=== PATIENT | male | born 1945 | race Caucasian/White ===

== ENCOUNTER 2017-02-26 17:32 | Observation (INO) | payer MEDICARE ==
[~2017-02-26 17:32] MED LIST: ASPI-973 PO; HYG25 PO; LANS30CA14 PO; LOSA50TA37 PO; NAPR220C11 PO
[2017-02-26 17:51] VITALS: BP 160/91; PULSE 112; RESP 16; O2SAT 96
[2017-02-26] MEDS ORDERED: Ondansetron 2 mg/mL 2 mL Inj IVPUSH PRN (18:05)
[2017-02-26] MEDS ORDERED: HYDROmorphone 0.5 mg/0.5 mL iSecure Syringe IVPUSH PRN (18:05)
[2017-02-26] MEDS ORDERED: HYDR12.5 PO (18:55)
[2017-02-26] MEDS: Lactated Ringer's 1,000 ML IV SCH (18:56)
--- NOTE | 2017-02-26 18:56 | NUR ---
Admit Pt arrived to floor ~1700. Drove himself here and ambulated in independently. Dr. Wise paged upon arrival and orders received. states he will be here in about 1 hour to see pt. No c/o pain or nausea at this time. no significant health hx. pt is an overall healthy man. See admit for details. Care conts
[2017-02-26 19:49] VITALS: BP 144/76; PULSE 58; RESP 18; O2SAT 96
[2017-02-26 20:22] LABS: APPEARANCE,URINE CLEAR (CLEAR,HAZY); COLOR,URINE YELLOW (YELLOW)
[2017-02-26 20:23] LABS: OCCULT BLOOD,URINE TRACE (NEGATIVE); UROBILINOGEN,URINE NORMAL (NORMAL)
[2017-02-26] MEDS: CeFAZolin Inj 2 GM in IV Premix 1 EACH IV SCH (20:58)
[2017-02-27 00:46] VITALS: BP 135/72; PULSE 92; RESP 18; O2SAT 95
--- NOTE | 2017-02-27 03:51 | NUR ---
Update Pt. reported pain, but however denies need for pain medication. Denies nausea. Will continue to monitor.
[2017-02-27] MEDS: CeFAZolin Inj 2 GM in IV Premix 1 EACH IV SCH ×3 (04:01→18:44)
[2017-02-27 04:46] VITALS: BP 121/73; PULSE 87; RESP 18; O2SAT 94
[2017-02-27] MEDS: Lactated Ringer's 1,000 ML IV SCH ×2 (05:24→14:13)
--- NOTE | 2017-02-27 06:12 | HP ---
[address] [address] HISTORY AND PHYSICAL PATIENT: GERALD MACK : 1945 MR#: [id number] ADMIT: 02/26/2017 JOB ID: [id number] DATE OF SERVICE: 02/26/2017 HISTORY OF PRESENT ILLNESS: The patient is a 71-year-old man who lives in [place] and had onset of abdominal pain yesterday. He describes the pain as being in the epigastrium and right upper quadrant. It does not clearly go into his back. It is not associated with nausea, vomiting, hematemesis or melena. He has never had similar symptoms. He presented to urgent care. An abdominal ultrasound was obtained which demonstrated diffuse gallbladder wall thickening. There were no gallstones. A negative sonographic Perez sign. Intrahepatic bile ducts were normal. Extrahepatic bile duct is not well seen. The pancreas not well seen. There was no free intra-abdominal fluid. He was in a significant amount of pain at that time, and then I was contacted and he was admitted. Subsequently, he feels better. He states the pain is less than it was previously. He has no known history of jaundice, acholic stools, dark urine, or pancreatitis. There is no known family history of gallstones or peptic ulcer disease. PAST MEDICAL HISTORY: Illnesses: 1. Hypertension. 2. Question GERD. HOME MEDICATIONS: 1. Losartan 50 mg daily. 2. Chlorthalidone 25 mg daily. 3. Prevacid 30 mg daily. 4. Hydrochlorothiazide 12.5 mg daily. 5. Naproxen p.r.n. ALLERGIES: None. OPERATIONS: No abdominal operations. HABITS: No tobacco. Quit in 1977. Alcohol: Occasional. SOCIAL HISTORY: He is . His of MS after having it for 30 years. He is retired, worked at [employer], lives in [place]. He is accompanied by his daughter Monica. FAMILY HISTORY: Negative for gallstones. REVIEW OF SYSTEMS: Otherwise negative. PHYSICAL EXAMINATION: Pleasant, alert, no distress. Appearing stated age. BMI not yet recorded. Temperature 36.8, brachial blood pressure 160/91, pulse 112, respiratory rate 16, O2 sat room air 96%. HEENT: PERRLA, EOMI. No scleral icterus. Neck: Trachea midline. No appreciable masses. Lymph nodes: No appreciable cervical, scalene, our inguinal adenopathy. Lungs: Clear to auscultation and percussion. Cardiac exam: Regular rhythm. No murmurs or gallops appreciated. Abdomen: Soft, nontender. He has no right upper quadrant tenderness. Extremities: No edema. Skin: Nonjaundiced. No rashes. Neurologic exam: Appropriate affect. No obvious cranial nerve deficits. No lateralizing signs. Gait not tested. LABORATORY TESTS: White blood cell count is 13.1, hematocrit 43, platelet count 261. Bilirubin 1.4. AST 18, ALT 19, lipase 36, glucose 153. Ultrasound: Diffuse gallbladder wall thickening. No gallstones. Negative sonographic Perez sign. Normal bile ducts. IMPRESSION: Epigastric pain, etiology unknown. It is possible that he may have or had a small stone obstructing the cystic duct that has now been relieved. By description and exam, I think he is better than what he was at urgent care, but the etiology of his pain remains obscure. The differential does include still calculous and acalculous cholecystitis, peptic ulcer disease, gastroesophageal reflux disease, and even appendicitis; although, I think that is not likely. PLAN: He will be started on clear liquids. Will continue IVs to the night. Will repeat laboratories tomorrow. Tomorrow, he may need a HIDA scan. He may need a CT scan. He may need an upper endoscopy or he may need nothing. I discussed this with the patient and his daughter and they understand and state they agree with this plan. Cc: SOBIA Fernandes
[2017-02-27 06:52] LABS: BASOPHILS % (AUTO) 0.1 % (0-3); EOSINOPHILS % (AUTO) 0.2 % (0-5); MONOCYTES % (AUTO) 9.9 % (4-12); Mean Corpuscular Hemoglobin 29.8 pg (27.0-35.0); Mean Corpuscular Volume 86.7 fL (81-100); NEUTROPHILS % (AUTO) 78.5 % (40-74); Platelet Count 193 bil/L (150-400)
--- NOTE | 2017-02-27 08:22 | PCM.PNSURG ---
Subjective Date of Service: Feb 27, 2017 Visit Information: Reason for Visit Cholecystitis Surgery/Surgery Date Post-Op Day # Date of Admission: Feb 26, 2017 at 17:49 Hospital Day # Subjective: Patient continues to complain of RUQ abdominal pain, but denies NVD, sweats, chills. Last bowel movement was 2 days ago. Gastrointestinal: No N/V, Passing Flatus Pain Management: IV Push Objective Objective Bowel tones present, tenderness to palpation of RUQ with equivocal Romelia's sign. No CVA tenderness. Vital Sign- Last 8 Hours Date Time Temp Pulse Resp B/P Pulse Ox O2 Delivery O2 Flow Rate FiO2 02/27/17 04:46 36.8 87 18 121/73 94 Room Air 02/27/17 00:46 37.1 92 18 135/72 95 Room Air Intake and Output- Last 8 Hour 02/27/17 Cumulative From/Thru 07:00 02/26/17 19:14 - 02/27/17 06:05 Intake Total 1613 ml 1613 ml Output Total 1300 ml 1300 ml Balance 313 ml 313 ml Intake Oral 600 ml 600 ml IV Total 1013 ml 1013 ml Output Urine Total 1300 ml 1300 ml # Bowel Movements 0 General: Alert, Oriented X3, Cooperative, Mild Distress Neck: Full Range of Motion Lungs: Normal Air Movement Heart: Exam Unremarkable Abdomen: Soft, Non-distended, Normoactive bowel tones Neuro: Grossly Neurologically Intact Result Diagram: 02/27/1762102/27/17621 Diagnostics: Abdominal US showed thickened gall bladder sarmiento without stones. Assessment & Plan Impression 71 year old male with 3 days of RUQ abdominal pain of unknown etiology -His white count has normalized, and he shows no signs of sepsis -No gall stones per US, normal LFT's -Will order an abdominal CT with contrast to hopefully identify etiology of his pain Problems: Osman Alejandre DO Feb 27, 2017 08:22
--- NOTE | 2017-02-27 12:47 | NUR ---
GURPREET explained and signed. Copy of GURPREET and Medicare self administered medication information given to pt.
--- NOTE | 2017-02-27 13:35 | DRSVH ---
PROCEDURE: CT ABDOMEN AND PELVIS WITH CONTRAST ([id number]) INDICATIONS: RUQ pain without evidence of gallstones. TECHNIQUE: After the administration of oral and intravenous contrast, 5 mm thick sections acquired from the diap hragms to the symphysis. 5 mm thick coronal and sagittal reformats were performed. For radiation do se reduction, the following was used: automated exposure control, adjustment of mA and/or kV accordi ng to patient size. COMPARISON: [facility], US, US ABDOMEN, 02/26/2017, 14:54. FINDINGS: Image quality: Excellent. ABDOMEN: Lung bases: There is mild dependent atelectasis. A moderate sized hernia is present. Heart size is normal. Solid organs: There is hypoattenuation of the liver compatible with fatty infiltration. The spleen i s normal in size. The gallbladder demonstrates wall thickening, measuring up to approximately 8 mm w ith mucosal enhancement and hyperemia with prominent adjacent vessels. There is mild pericholecystic fat stranding. No calcified gallstones. Biliary system is non-dilated. Pancreas enhances normally . No adrenal nodules. There are multiple bilateral renal cysts. There is a small punctate nonobstr ucting stone in the lower pole of the right kidney. No hydronephrosis. Peritoneum and bowel: Stomach, small bowel, and colon loops are normal in caliber and wall thickness . The appendix is normal in appearance. There is colonic diverticulosis without acute diverticuliti s. No free fluid or air. Nodes and vessels: No retroperitoneal or mesenteric adenopathy. Aorta and inferior vena cava are no rmal in caliber. Miscellaneous: No ventral hernias. PELVIS: Genitourinary: Bladder wall thickness is normal. Miscellaneous: No inguinal hernias or adenopathy. Bones: No suspicious bony lesions. No vertebral body compression fractures. IMPRESSION: 1. Gallbladder wall thickening with mild hyperemia and pericholecystic fat stranding suggestive of a calculus cholecystitis. Recommend correlation clinically and if indicated further evaluation may be obtained with a HIDA scan. 2. Moderate size hiatal hernia. 3. Punctate nonobstructing right renal stone. Dictated by: Agustín Marino M.D. on 02/27/2017 at 13:26 Approved by: Agustín Marino M.D. on 02/27/2017 at 13:34
[2017-02-27] MEDS: Pantoprazole 40 mg ER24 Tablet PO SCH (14:13)
[2017-02-27 14:38] VITALS: BP 135/88; PULSE 99; RESP 18; O2SAT 95
--- NOTE | 2017-02-27 14:42 | NUR ---
Social Work: Initial Assessment/Multi-Disciplinary Rounds D: EMR reviewed. Please see Initial Assessment linked to this note for more information. Pt is a 71 y/o male admitted [facility] for cholecystitis per H&P. Pt has a readmit risk score of 0. SW met with pt and spouse at bedside to conduct initial assessment. Pt was alert and oriented x3. SW explained role and wrote phone number on white board. SW provided "Your Discharge Planning Checklist" and encouraged pt to contact SW for any discharge planning questions. Pt's insurance is Medicare and [employer] Supplemental. PCP is Nancy Waldrop MD. Pt gave verbal consent to contact daughter Monica Castano [phone] for discharge planning. DPOA/advanced directive ppw discussed - ppw completed and SW encouraged pt to provide a copy to the hospital. Pt does not own any DME. Pt drives and is independent at baseline. Per rounds, pt anticipated to discharge in 1-2 days, pending Ortho. A: SW assessed pt's capacity for self-care. SW does not have any concerns for pt's capacity for self-care. Pt is independent with ADLs at baseline. Pt does not have any concerns regarding discharge at this time. Pt feels safe discharging home and will remain independent. P: Pt likely to discharge home with daughter via POV. No SW needs identified. No MD orders received. SW will continue to follow for needs. CRISTIANE Do Addendum: 02/27/17 at 1443 by GURMEET SIERRA SS Amended: Links added.
[2017-02-27 16:27] VITALS: BP 128/78; PULSE 90; RESP 18; O2SAT 94
--- NOTE | 2017-02-27 17:21 | NUR ---
Arrival to Floor, Chest Pain Patient arrives to floor from ED alert and oriented. After arrival from ED patient made complaint of "a twinge of chest pain when taking deep breaths", patient states that he does not have any chest pain when breathing normally. Hospitalist made aware, no new ordered received. As shift progressed patient states that chest pain with deep breaths has ceased. Will continue to monitor, care is ongoing. Addendum: 02/27/17 at 1747 by BRANDIE SHANE RN Please disregard above note, charted on wrong patient record.
--- NOTE | 2017-02-27 18:33 | NUR ---
Pain Patient states he has mostly been free from pain this shift. Patient declines any pain medication, as well as nausea or other difficulty. Patient alert and oriented, ambulating without difficulty. Care is ongoing.
[2017-02-27 21:25] VITALS: BP 115/69; PULSE 90; RESP 20; O2SAT 94
[2017-02-28] MEDS: Lactated Ringer's 1,000 ML IV SCH ×2 (01:34→10:05)
[2017-02-28] MEDS: CeFAZolin Inj 2 GM in IV Premix 1 EACH IV SCH ×2 (02:40→11:04)
--- NOTE | 2017-02-28 05:18 | NUR ---
Pain Patient denies any pain this shift. Patient sleeping quietly most of shift. Patient denies N/V. A&OX3. Vitals stable. Up independent in room. Care continues.
[2017-02-28 05:39] LABS: BASOPHILS % (AUTO) 0.1 % (0-3); EOSINOPHILS % (AUTO) 1.4 % (0-5); MONOCYTES % (AUTO) 13.8 % (4-12); Mean Corpuscular Hemoglobin 29.6 pg (27.0-35.0); Mean Corpuscular Volume 88.8 fL (81-100); NEUTROPHILS % (AUTO) 68.9 % (40-74); Platelet Count 179 bil/L (150-400)
[2017-02-28 06:09] VITALS: BP 128/84; PULSE 81; RESP 18; O2SAT 94
[2017-02-28] MEDS: Pantoprazole 40 mg ER24 Tablet PO SCH (06:42)
--- NOTE | 2017-02-28 09:49 | PCM.DISURG ---
Surgical Discharge Instruction Date of Service Feb 28, 2017 Dates of Hospitalization Date of Hospital Admission Feb 26, 2017 at 17:49 Providers Admitting Physician: Reji Wise MD Primary Care Physician: Nancy Waldrop DO Attending Physician: Reji Wise MD Discharge Diagnosis Discharge Diagnosis Acalculous cholecystitis. Diet Discharge Diet: No restrictions Activity Discharge Activity-General: Be up and about Follow Up Plan Follow Up Plan Please follow up in the general surgery clinic in the next 2 weeks. Call to confirm your appointment. Please call at any time to let us know if you are not feeling well. Call your provider for: Fever, Chills, Increasing abdominal pain, Nausea, Vomiting Valeriano Garcia MD Feb 28, 2017 09:49
[2017-02-28] MEDS ORDERED: POLY17PO6 PO (09:52)
[2017-02-28] MEDS ORDERED: ONDA-53 PO (09:52)
--- NOTE | 2017-02-28 11:04 | PCM.PNSURG ---
Subjective Date of Service: Feb 28, 2017 Visit Information: Reason for Visit Cholecystitis Surgery/Surgery Date Post-Op Day # Date of Admission: Feb 26, 2017 at 17:49 Hospital Day # Subjective: No acute overnight events Denies having any abdominal pain for >24 hours No nausea or vomiting Tolerating clears but has not yet eaten. Feels hungry. Voiding and ambulating Afebrile Passing flatus but no stool Objective Vital Sign- Last 8 Hours Date Time Temp Pulse Resp B/P Pulse Ox O2 Delivery O2 Flow Rate FiO2 02/28/17 06:09 37.1 81 18 128/84 94 Room Air Intake and Output- Last 8 Hour 02/28/17 Cumulative From/Thru 07:00 02/26/17 19:14 - 02/28/17 06:08 Intake Total 1713 ml 4576 ml Output Total 2700 ml Balance 1713 ml 1876 ml Intake Oral 1020 ml IV Total 1713 ml 3556 ml Output Urine Total 2700 ml # Bowel Movements 0 General: Alert, Oriented X3, Cooperative Neck: Full Range of Motion Lungs: Normal Air Movement Abdomen: Benign, Soft, Non-tender, Non-distended, Other (Negative shea's sign. ) Result Diagram: 02/28/17 0503 02/28/17 0503 Diagnostics: CT A/P 02/27: Mild gallbladder wall thickening and pericholecystic fluid in the absence of identifiable stones, biliary dilation, or pancreatic/duodenal pathology. Assessment & Plan Impression 71M with mild acalculous cholecystitis. Pain has now resolved, LFTs downtrending, and WBC normalized. Problems: Plan If patient is able to tolerate a regular diet with pain, nausea, or vomiting, he may discharge home. He does not require further antibiosis. He will follow up in the general surgery clinic in 2-3 weeks with repeat labs for discussion regarding an elective cholecystectomy. Strict return precautions were given. Patient will contact the surgery team should he worsen at home. Valeriano Garcia MD Feb 28, 2017 11:04
--- NOTE | 2017-02-28 12:36 | NUR ---
Discharge Orders for discharge were received. The patient was made aware of the plan for discharge and was agreeable to go. The patient was given information and teaching on his diagnosis and treatment, signs and symptoms to be aware of, follow up instructions, scrips and information with physical hand outs on new medications and his questions were answered. The patient signified understanding of this information, confirmed using the teach back method. The patient's asymptomatic IV was then removed and the patient was dressed in his own clothing and gathered his belongings. Patient denies any belongings in hospital safe or pharmacy. The patient then ambulated to the main entrance were he entered a private family vehicle. At the time of discharge the patient was alert and oriented, with no complaint of chest pain, shortness of breath, nausea or other difficulty.
--- NOTE | 2017-02-28 13:21 | NUR ---
Social Work: Discharge/Multidisciplinary Rounds D: EMR reviewed. Pt is on day 2 of hospitalization. Per multidisciplinary rounds, pt is medically stable for discharge home today - no SW needs identified/no MD orders received. Pt discharged home via POV. A: SW assessed pt's capacity for self-care. SW does not have any concerns for pt's capacity for self-care. Pt is independent with ADLs at baseline. Pt does not have any concerns regarding discharge at this time. Pt feels safe discharging home and will remain independent. P: Pt discharged home with daughter via POV. No SW needs identified. No MD orders received. CRISTIANE Do
--- NOTE | 2017-02-28 15:42 | PCM.DC.SUR ---
Discharge Summary Date of Service: Feb 28, 2017 Date of Hospital Admission: Feb 26, 2017 at 17:49 Date of Discharge: February 28, 2017 Brief History and Physical: The patient is a 71-year-old man who lives in [place] and had onset of abdominal pain the day prior to admission. He describes the pain as being in the epigastrium and right upper quadrant. It does not clearly go into his back. It is not associated with nausea, vomiting, hematemesis or melena. He has never had similar symptoms. He presented to urgent care. An abdominal ultrasound was obtained which demonstrated diffuse gallbladder wall thickening. There were no gallstones. A negative sonographic Perez sign. Intrahepatic bile ducts were normal. Extrahepatic bile duct is not well seen. The pancreas not well seen. There was no free intra-abdominal fluid. He was in a significant amount of pain at that time, and then I was contacted and he was admitted. Subsequently, he feels better. He states the pain is less than it was previously. He has no known history of jaundice, acholic stools, dark urine, or pancreatitis. There is no known family history of gallstones or peptic ulcer disease. Hospital Course: The patient was admitted for observation, IV antibiosis and made NPO. By the morning of hospital day 1, his abdominal pain had normalized, however his bilirubin increased to 2.1. A CT abdomen and pelvis was obtained which revealed evidence of mild acalculous cholecystitis and no other pathology. Given he was no longer having any pain and was feeling improved, the decision was made not to operate. By hospital day 2, his bilirubin was downtrending. With exam he was found to be nontender and complained of no abdominal pain, fevers, or nausea. He was advanced to a regular diet with excellent tolerance. In light of this, the plan was made for discharge with close follow up in the general surgery clinic. We discussed return precautions and the patient expressed his understanding. He met or exceeded all criteria for a safe discharge to home. Aspirin (Aspirin) 81 Mg Tablet 81 MG PO DAILY (Reported) Hydrochlorothiazide (Hydrochlorothiazide) 12.5 Mg Capsule 12.5 MG PO DAILY ( Reported) Lansoprazole DR (Prevacid) 30 Mg Capsule 30 MG PO DAILY (Reported) Losartan Potassium (Losartan Potassium) 50 Mg Tablet 50 MG PO DAILY (Reported) Naproxen Sodium (Aleve) 220 Mg Capsule 220 MG PO PRN For Pain (Reported) Ondansetron (Ondansetron) 4 Mg Tablet 4 MG PO Q8Hr PRN PRN For Nausea Polyethylene Glycol 3350 (Miralax) 17 Gm Powd.pack 17 GM PO BID PRN PRN For Constipation Valeriano Garcia MD Feb 28, 2017 15:42
== END 2017-02-28 12:08 | disposition home or self-care (01) ==
LOC: INTOOBSV 17:49 → OSC 17:49
PROVIDERS: ADMIT Surgery; ATTEND Surgery
DX: R10.13 Epigastric pain (principal); I10 Essential (primary) hypertension; Z87.891 Personal history of nicotine dependence
CPT/HCPCS: 36415; 74177; 80053; 81000; 83690; 85025; 96365; 96366; 96376; G0378; G0379; J0690; J7120; Q9967

== ENCOUNTER 2017-04-02 06:01 | Observation (INO) | payer MEDICARE ==
[2017-04-02] VITALS (14 sets, daily range): BP systolic 110–152; BP diastolic 53–91; PULSE 62–85; RESP 13–20; O2SAT 94–98
[~2017-04-02] VITALS: Ht 175.3 cm; Wt 94.9 kg
[~2017-04-02 06:01] MED LIST changes: +HYDR12.5 PO; -HYG25 PO; +ONDA-53 PO; +POLY17PO6 PO
[2017-04-02] MEDS ORDERED: 0.9% Sodium Chloride 1,000 ML IV ONE (06:18)
[2017-04-02] MEDS ORDERED: Ondansetron 2 mg/mL 2 mL Inj IVPUSH ONE (06:20)
--- NOTE | 2017-04-02 06:34 | ED.REPORT ---
HPI-General Illness Date of Service Apr 02, 2017 ED Provider: Ana Rosa Cosme MD The pt is a 71 y/o male w/ a hx of cholecystitis, HTN, GERD, and a hiatal hernia presenting to the ED complaining of upper abdominal pain onset last night at 2100. The pain radiates to the R as well. Denies fever, cough, or chills. The pt had ribs, without much fat, and peas for dinner last night and last drank water at 0530 this morning. The pt has not taken anything for the pain. The pt was discharged from [facility] 1 month ago and was in the hospital for 2 days. Hospital Course: The patient was admitted for observation, IV antibiosis and made NPO. By the morning of hospital day 1, his abdominal pain had normalized, however his bilirubin increased to 2.1. A CT abdomen and pelvis was obtained which revealed evidence of mild acalculous cholecystitis and no other pathology. Given he was no longer having any pain and was feeling improved, the decision was made not to operate. By hospital day 2, his bilirubin was downtrending. With exam he was found to be nontender and complained of no abdominal pain, fevers, or nausea. He was advanced to a regular diet with excellent tolerance. In light of this, the plan was made for discharge with close follow up in the general surgery clinic. We discussed return precautions and the patient expressed his understanding. He met or exceeded all criteria for a safe discharge to home. Below is the CT scan taken on 02/27 from when the pt was hospitalized: PROCEDURE: CT ABDOMEN AND PELVIS WITH CONTRAST IMPRESSION: 1. Gallbladder wall thickening with mild hyperemia and pericholecystic fat stranding suggestive of acalculus cholecystitis. Recommend correlation clinically and if indicated further evaluation may be obtained with a HIDA scan. 2. Moderate size hiatal hernia. 3. Punctate nonobstructing right renal stone. Dictated by: Agustín Marino M.D. on 02/27/2017 at 13:26 Approved by: Agustín Marino M.D. on 02/27/2017 at 13:34 Nursing Notes Stated Complaint: ABDOMINAL PAIN Chief Complaint: Male Abdominal Pain Nursing Notes Reviewed: Yes Allergies: Coded Allergies: No Known Allergies (Unverified , 04/02/17) Scheduled Aspirin (Aspirin) 81 Mg Tablet 81 MG PO DAILY Chlorthalidone (Chlorthalidone) 25 Mg Tablet 25 MG PO DAILY Lansoprazole DR (Prevacid) 30 Mg Capsule 30 MG PO DAILY Losartan Potassium (Losartan Potassium) 50 Mg Tablet 50 MG PO DAILY Scheduled PRN Naproxen Sodium (Aleve) 220 Mg Capsule 220 MG PO PRN For Pain General Time Seen by MD: 06:32 Chief Complaint Abdominal pain Hx Obtained From: Patient Arrived By: Walk-in Sudden in Onset?: Yes Onset Occurred: Yesterday Symptom Duration: Since onset Recent Healthcare: Recent doctor visit, Recent hospitalization Similar Sx Previous: Yes Past Medical History Past Medical History Cholecystitis Hay fever HTN Hiatal hernia GERD Arthritis Past Surgical History Cataract surgery R shoulder surgery Smoking History Former Smoker Social History None reported Ambulatory Status Independent Review of Systems Full Review of Systems Constitutional: Denies: Chills, Fever Respiratory: Denies: Non-productive cough GI: Reports: Abdominal pain Complete sys rev & neg: except as marked. Physical Exam Vital Signs Vital Signs Date Time Temp Pulse Resp B/P Pulse Ox O2 Delivery O2 Flow Rate FiO2 04/02/17 11:53 36.7 62 14 152/87 96 Room Air 04/02/17 09:16 36.6 68 15 133/64 97 Room Air 04/02/17 06:11 36.6 84 18 148/74 97 Room Air Initial VS: Reviewed General/Constitutional: Well-developed, Well-nourished Head / Eyes: Atraumatic, Normocephalic, PERRL ENT: Mucous membranes moist, Conjunctiva normal, No scleral icterus Neck: Supple, Non-tender, Full range of motion Respiratory: Breath sounds normal, Clear to auscultation, No respiratory distress Cardiovascular: Regular rate & rhythm, Heart sounds normal, Intact distal pulses Extremities: Vascular intact, Neuro intact, No swelling, No tenderness Skin: Warm, Dry, No cyanosis Neurologic: Alert, Oriented, Nonfocal Psychiatric: Mood/affect normal, Behavior normal, Normal thought content Abdomen: Atraumatic, Soft, No guarding, No rebound, BS normoactive Tenderness/Guarding/Rebound: Positive: Tender RUQ... (Mild) Interpretation & Diagnostics PROCEDURE: US ABDOMEN, LIMITED IMPRESSION: Cholelithiasis with thickened edematous gallbladder wall similar to prior CT scan consistent with cholecystitis. Dictated by: Cory PINEDA Interpreted: Carlo Sidhu MD on 04/02/2017 at 12: 48 Transcribed by: LAST on 04/02/2017 at 12:50 Approved by: Carlo iSdhu M.D. on 04/02/2017 at 13:31 PROCEDURE: X-RAY OPERATIVE CHOLANGIOGRAM ([id number]) IMPRESSION: Unremarkable intraoperative cholangiogram. No choledocholithiasis is evident. Dictated by: Wilfred Merritt M.D. on 04/02/2017 at 14:02 Approved by: Wilfred Merritt M.D. on 04/02/2017 at 14:03 Lab Results Interpretation Result Diagram: 04/02/17 0620 04/02/17 0620 Test 04/02/17 06:20 04/02/17 07:20 White Blood Count 6.6th/mm3 (3.8-10.1) Red Blood Count 5.04mil/mm3 (4.40-5.80) Hemoglobin 14.9g/dL (13.8-17.2) Hematocrit 43.7% (41.0-50.0) Mean Corpuscular Volume 86.7fL (81-100) Mean Corpuscular Hemoglobin 29.6pg (27.0-35.0) Mean Corpuscular Hemoglobin Concent 34.1% (32.0-37.0) Red Cell Distribution Width 14.6% (12.3-15.4) Platelet Count 185bil/L (150-400) Neutrophils (%) (Auto) 68.1% (40-74) Lymphocytes (%) (Auto) 19.8% (14-46) Monocytes (%) (Auto) 10.2% (4-12) Eosinophils (%) (Auto) 1.5% (0-5) Basophils (%) (Auto) 0.2% (0-3) Prothrombin Time 10.1sec (8.1-12.5) Prothromb Time International Ratio 0.95ratio Sodium Level 136mEq/L (134-144) Potassium Level 3.5mEq/L (3.5-5.2) Chloride Level 101mEq/L (97-108) Carbon Dioxide Level 22mmol/L (18-29) Blood Urea Nitrogen 21mg/dL (8-27) Creatinine 0.84mg/dL (0.76-1.27) Estimat Glomerular Filtration Rate 95mL/min (>59) Glucose Level 121mg/dL (60-99) Lactic Acid Level 1.2mmol/L (0.4-2.0) Calcium Level 9.5mg/dL (8.5-10.1) Magnesium Level 1.7mg/dL (1.6-2.6) Total Bilirubin 1.1mg/dL (0.0-1.2) Aspartate Amino Transf (AST/SGOT) 14U/L (0-50) Alanine Aminotransferase (ALT/SGPT) 15U/L (0-44) Alkaline Phosphatase 76U/L (25-160) Total Protein 7.2g/dL (6.4-8.4) Albumin 3.9g/dL (3.4-5.0) Lipase 53U/L (13-60) Urine Color Yellow (YELLOW) Urine Appearance Hazy (CLEAR,HAZY) Urine pH 6.0 (5.0-8.0) Urine Specific [place] 1.025 (1.003-1.035) Urine Protein Negativemg/dL (NEG,TRACE) Urine Glucose (UA) Negativemg/dL (NEGATIVE) Urine Ketones Negativemg/dL (NEGATIVE) Urine Occult Blood Trace (NEGATIVE) Urine Nitrite Negative (NEGATIVE) Urine Bilirubin Negative (NEGATIVE) Urine Urobilinogen Normalmg/dL (NORMAL) Urine Leukocyte Esterase Negative (NEGATIVE) Urine RBC 0-2/hpf (0-2) Urine WBC 0-5/hpf (0-5) Urine Epithelial Cells Occasional/hpf (NONE-MOD) Urine Crystals None seen (NONE SEEN) Urine Bacteria None/hpf (NONE-FEW) Urine Hyaline Casts None/lpf (NONE) Urine Granular Casts None seen (NONE SEEN) Urine Waxy Casts None seen (NONE SEEN) Urine Red Blood Cell Casts None seen (NONE SEEN) Urine White Blood Cell Casts None seen (NONE SEEN) Urine Mucus Present (None Seen) Urine Trichomonas None seen (NONE SEEN) Urine Yeast None (NONE SEEN) Urinalysis Comment None Urine Culture Reflexed Not indicated ECG Interpretation ECG Interpretation: Rate 69 NSR Borderline prolonged [place] interval Abnormal R-wave progression, early transition No changes No ischemia Time: 06:42 Interpreted by: ED physician Re-Eval/Medical Decision Source of Hx: Old records Time of Eval: 12:30 Re-Evaluation/Progress Note: Discussed ultrasound results and plan for surgery. Consultation #1: Referral / Consult Name: Erwin Garcia MD Consulted With: Surgeon Call Returned at: 10:59 Crew Boss: Will see patient Consultation #2: Referral / Consult Name: Erwin Garcia MD Consulted With: Surgeon Call Returned at: 11:27 Note: Dr. Garcia would like another ultrasound to be ordered for more objective evidence before he removes the pts gall bladder. Consultation #3: Consulted With: Surgeon Call Returned at: 12:59 Crew Boss: Will see patient Note: Discussed + u/s with Dr Garcia. will plan on surgical intervention Counseled Regarding: Diagnosis, Lab results, Need for admission Discharge & Departure Primary Impression: Cholecystitis Disposition: ADMITTED TO HOSPITAL Discharge Condition All VS Reviewed: Yes Condition: Stable Referrals: Nancy Waldrop DO (PCP) Scribe Attestation Pt rechecked. Informed pt of plan for treatment. Pt understands and agrees with plan for treatment. F/U instructions and RTER warnings given. All questions addressed. copies to: Nancy Waldrop Shawna L MD Apr 02, 2017 06:34 David Rossi Apr 02, 2017 08:22
[2017-04-02 06:43] LABS: BASOPHILS % (AUTO) 0.2 % (0-3); EOSINOPHILS % (AUTO) 1.5 % (0-5); MONOCYTES % (AUTO) 10.2 % (4-12); Mean Corpuscular Hemoglobin 29.6 pg (27.0-35.0); Mean Corpuscular Volume 86.7 fL (81-100); NEUTROPHILS % (AUTO) 68.1 % (40-74); Platelet Count 185 bil/L (150-400)
[2017-04-02 07:01] LABS: INR 0.95 ratio
[2017-04-02 07:03] LABS: Magnesium 1.7 mg/dL (1.6-2.6)
[2017-04-02 08:31] LABS: APPEARANCE,URINE HAZY (CLEAR,HAZY); COLOR,URINE YELLOW (YELLOW); OCCULT BLOOD,URINE TRACE (NEGATIVE); UROBILINOGEN,URINE NORMAL (NORMAL)
--- NOTE | 2017-04-02 12:50 | DRSVH ---
PROCEDURE: US ABDOMEN, LIMITED ([id number]) INDICATIONS: RUQ pain. compare to 02/27. TECHNIQUE: Real-time focused scanning was performed of the abdomen, with image documentation. COMPARISON: [facility], CT, CT ABD PELVIS W CON, 02/27/2017, 12:58. FINDINGS: Limited evaluation gallbladder demonstrates multiple stones and there is diffuse thickening and edema involving the gallbladder wall measuring up to 6.8 mm. No pericholecystic fluid. No bili tucker dilatation. IMPRESSION: Cholelithiasis with thickened edematous gallbladder wall similar to prior CT scan consist ent with cholecystitis. Dictated by: Cory PINEDA Interpreted: Carlo Sidhu MD on 04/02/2017 at 12:48 Transcribed by: LAST on 04/02/2017 at 12:50 Approved by: Carlo Sidhu M.D. on 04/02/2017 at 13:31
[2017-04-02] MEDS ORDERED: CeFAZolin Inj 2 GM in IV Premix 1 EACH IV ONE (13:10)
[2017-04-02] MEDS ORDERED: Lactated Ringer's 1,000 ML IV ONE (13:30)
[2017-04-02] MEDS ORDERED: Dexamethasone 4 mg/mL Inj ONE (13:32)
[2017-04-02] MEDS ORDERED: Neostigmine 1 mg/mL 10 mL Inj ONE (13:32)
[2017-04-02] MEDS ORDERED: hydrALAZINE 20 mg/mL Inj ONE (13:32)
[2017-04-02] MEDS ORDERED: Rocuronium 10 mg/mL 5 mL Inj ONE (13:32)
[2017-04-02] MEDS ORDERED: fentaNYL-PF 50 mCg/mL 2 mL Inj ONE (13:32)
[2017-04-02] MEDS ORDERED: Ondansetron 2 mg/mL 2 mL Inj ONE (13:32)
[2017-04-02] MEDS ORDERED: Propofol 10 mg/mL 20 mL Inj ONE (13:32)
[2017-04-02] MEDS ORDERED: Glycopyrrolate 0.2 MG/ML 1mL Inj ONE (13:32)
[2017-04-02] MEDS ORDERED: Bupivacaine-MPF 0.5% 30 mL Inj INFILTRATE ONE (14:10)
[2017-04-02] MEDS ORDERED: Iopamidol-300 50 mL Inj IV ONE (14:13)
[2017-04-02] MEDS ORDERED: Lactated Ringer's 1,000 ML IV SCH (14:19)
[2017-04-02] MEDS ORDERED: Lactated Ringer's 500 ML IV PRN (14:19)
--- NOTE | 2017-04-02 14:19 | PCM.HPANE ---
Patient Data Date of Service: Apr 02, 2017 (6127) Surgeon Admitting Provider: Attending Provider:Erwin Garcia MD Primary Care Physician:Nancy Waldrop DO Other Provider: Reason for Visit Cholecistitas Ht/WT & BMI Height (Feet): 5 Height (Inches): 9 Weight (Kilograms): 93.18 Body Mass Index Allergies Coded Allergies: No Known Allergies (Unverified , 04/02/17) Past Anesthesia History Anesthesia History: Denies:: Abnormal Airway, Anesthesia Reactions, Difficult Intubation, Fam Anesthesia Reaction Diabetes History Hx Diabetes?: No MRSA MRSA: No Medications Reported Medications Hydrochlorothiazide 12.5 Mg Ajzbheb89.5 Mg PO DAILY 30 Days Ref 0 02/26/[address] (Prevacid)30 Mg [id number] Mg PO DAILY Ref 0 05/08/16 Losartan Potassium 50 Mg Niblna55 Mg PO DAILY 05/08/16 Aspirin 81 Mg Ddudhe24 Mg PO DAILY Ref 0 05/08/16 Naproxen Sodium (Aleve)220 Mg [id number] Mg PO PRN For Pain 05/08/16 Discontinued Scripts Polyethylene Glycol 3350 (Miralax)17 Gm Powd.pack17 Gm PO BID PRN For Constipation #1 BOTTLE Prov:Valeriano Garcia MD 02/28/17 Ondansetron 4 Mg Tablet4 Mg PO Q8Hr PRN For Nausea #8 TABLET Prov:Valeriano Garcia MD 02/28/17 History History of ENT Problems?: Yes HEENT History: Positive for:: Cataracts (removed 8 years ago) Hearing Problem (mild no hearing aides.) Sinus Problem (hay fever ) Denies:: Abnormal Airway Difficult Intubation Dysphagia Denture Type: None Teeth Condition: Within Normal Limits Hx of Heart Problems?: Yes Cardiovascular History: Positive for:: Hypertension (on medications) Denies:: AICD Abdominal Aortic Aneurism Cardiac Surgery Edema Heart Murmur Irregular Heartbeat Pacemaker Hx of Respiratory Problem?: No Respiratory History: Denies:: Asthma COPD Emphysema Oxygen Administration Pneumonia Tuberculosis Use of C-PAP Machine Hx Neurologic Problems?: No Neurological History: Denies:: CVA Dementia Dizziness Headaches Multiple Sclerosis Parkinson's Disease Seizures Hx of GI Problems?: Yes Hx of Problems?: Yes Genitourinary History: Positive for:: Kidney Stones Denies:: Urinary Tract Infection Male Hx: Denies:: Prostate Problems Scrotal Mass Testicular Surgery Skin History: Denies:: History Skin Disorders? Pressure Ulcers Hx Musculoskeletal Problems?: Yes Musculoskeletal History: Denies:: Back Injury Joint Replacement Musculoskeletal Trauma Systemic Lupus Hx of Psycho/Social Problems?: No Psycho Social History: Denies:: Anxiety Hx Depression Hx Surgeries?: Yes (right shoulder arth; hernia repair) Hx Any Other Health Problems?: No Other History: Denies:: Cancer Hospitalization Thyroid Disease History Blood Transfusions: Denies:: Blood Transfuse Reaction Blood Transfusions Hx Diabetes: No Hx Alcohol Use: Yes (occasional not daily)Hx Substance Use: No Smoking Status: Former Smoker Have You Smoked inLast 12 mo: No Stop/Bang Risk Assessment Category Category 1A: Patient has history of documented sleep apnea, and HAS NOT received any narcotic, sedative or anesthesia administration during this stay. Category 1B: Patient has history of documented sleep apnea, and HAS received any narcotic , sedative or anesthesia administration during this stay Category 2: Patient has SUSPECTED Obstructive Sleep Apnea, and HAS received any narcotic , sedative or anesthesia administration during this stay. Category 3: Patient has SUSPECTED Obstructive Sleep Apnea and HAS NOT received narcotic, sedative or anesthesia administration during this stay. Category 4: Outpatient in Procedural Areas with known sleep apnea or who screen positive for High Risk via the STOP/BANG questionnaire. Exam Exam Vital Signs Vital Signs Date Time Temp Pulse Resp B/P Pulse Ox O2 Delivery O2 Flow Rate FiO2 04/02/17 13:14 36.7 73 14 147/84 96 Room Air 04/02/17 13:13 73 14 147/84 96 Room Air 04/02/17 11:53 36.7 62 14 152/87 96 Room Air 04/02/17 09:16 36.6 68 15 133/64 97 Room Air General Appearance: Alert, Oriented X3, Cooperative, No Acute Distress HEENT/AIRWAY: MP 2 Lungs: Clear to Auscultation Heart: Exam Unremarkable Meds/Labs/Diagnostics Admission Meds Current Medications Sodium Chloride (Normal Saline) 1,000 ml @ 0 mls/hr Q0M ONCE IV Last administered on 04/02/17 06:58; Start 04/02/17 at 06:18; Stop 04/02/17 at 06:19 ; Status DC Ondansetron HCl (Zofran Inj) 8 mg ONCE ONCE IVPUSH Last administered on 06:59; Start 04/02/17 at 06:20; Stop 04/02/17 at 06:21; Status DC Ketorolac Tromethamine 30 mg 30 mg ONCE ONCE IVPUSH Last administered on 06:59; Start 04/02/17 at 06:20; Stop 04/02/17 at 06:21; Status DC Lactated Ringer's (Lr) 1,000 ml @ ud STK-MED ONCE IV Last administered on 04/02 13:30; Start 04/02/17 at 13:30; Stop 04/02/17 at 14:13; Status DC Cefazolin Sodium (Ancef Inj) 2 gm STK-MED ONCE IVPUSH Last administered on 04/02 14:04; Start 04/02/17 at 14:04; Stop 04/02/17 at 14:13; Status DC Bupivacaine HCl (Sensorcaine-MPF 0.5% Inj) 30 ml STK-MED ONCE INFILTRATE Last administered on 04/02/17 14:10; Start 04/02/17 at 14:10; Stop 04/02/17 at 14:13 ; Status DC Iopamidol (Isovue-300 Inj) 50 ml STK-MED ONCE IV Last administered on 14:13; Start 04/02/17 at 14:13; Stop 04/02/17 at 14:14; Status DC Labs Test 04/02/17 06:20 04/02/17 07:20 White Blood Count 6.6th/mm3 (3.8-10.1) Red Blood Count 5.04mil/mm3 (4.40-5.80) Hemoglobin 14.9g/dL (13.8-17.2) Hematocrit 43.7% (41.0-50.0) Mean Corpuscular Volume 86.7fL (81-100) Mean Corpuscular Hemoglobin 29.6pg (27.0-35.0) Mean Corpuscular Hemoglobin Concent 34.1% (32.0-37.0) Red Cell Distribution Width 14.6% (12.3-15.4) Platelet Count 185bil/L (150-400) Neutrophils (%) (Auto) 68.1% (40-74) Lymphocytes (%) (Auto) 19.8% (14-46) Monocytes (%) (Auto) 10.2% (4-12) Eosinophils (%) (Auto) 1.5% (0-5) Basophils (%) (Auto) 0.2% (0-3) Prothrombin Time 10.1sec (8.1-12.5) Prothromb Time International Ratio 0.95ratio Sodium Level 136mEq/L (134-144) Potassium Level 3.5mEq/L (3.5-5.2) Chloride Level 101mEq/L (97-108) Carbon Dioxide Level 22mmol/L (18-29) Blood Urea Nitrogen 21mg/dL (8-27) Creatinine 0.84mg/dL (0.76-1.27) Estimat Glomerular Filtration Rate 95mL/min (>59) Glucose Level 121mg/dL (60-99) Lactic Acid Level 1.2mmol/L (0.4-2.0) Calcium Level 9.5mg/dL (8.5-10.1) Magnesium Level 1.7mg/dL (1.6-2.6) Total Bilirubin 1.1mg/dL (0.0-1.2) Aspartate Amino Transf (AST/SGOT) 14U/L (0-50) Alanine Aminotransferase (ALT/SGPT) 15U/L (0-44) Alkaline Phosphatase 76U/L (25-160) Total Protein 7.2g/dL (6.4-8.4) Albumin 3.9g/dL (3.4-5.0) Lipase 53U/L (13-60) Urine Color Yellow (YELLOW) Urine Appearance Hazy (CLEAR,HAZY) Urine pH 6.0 (5.0-8.0) Urine Specific [place] 1.025 (1.003-1.035) Urine Protein Negativemg/dL (NEG,TRACE) Urine Glucose (UA) Negativemg/dL (NEGATIVE) Urine Ketones Negativemg/dL (NEGATIVE) Urine Occult Blood Trace (NEGATIVE) Urine Nitrite Negative (NEGATIVE) Urine Bilirubin Negative (NEGATIVE) Urine Urobilinogen Normalmg/dL (NORMAL) Urine Leukocyte Esterase Negative (NEGATIVE) Urine RBC 0-2/hpf (0-2) Urine WBC 0-5/hpf (0-5) Urine Epithelial Cells Occasional/hpf (NONE-MOD) Urine Crystals None seen (NONE SEEN) Urine Bacteria None/hpf (NONE-FEW) Urine Hyaline Casts None/lpf (NONE) Urine Granular Casts None seen (NONE SEEN) Urine Waxy Casts None seen (NONE SEEN) Urine Red Blood Cell Casts None seen (NONE SEEN) Urine White Blood Cell Casts None seen (NONE SEEN) Urine Mucus Present (None Seen) Urine Trichomonas None seen (NONE SEEN) Urine Yeast None (NONE SEEN) Urinalysis Comment None Urine Culture Reflexed Not indicated Plan Impression Patient chart reviewed, patient interviewed and anesthestic plan with risks, benefits, and alternatives discussed, and informed consent obtained. ASA Physical Status: ASA2 Mod Systemic Disease Anesthetic Plan: GA Bene/Risks/Altern/Consents: Yes HP Complete Prior to Induction: Yes Hugo Grajeda MD Apr 02, 2017 14:19
[2017-04-02] MEDS ORDERED: Ondansetron 2 mg/mL 2 mL Inj IVPUSH PRN ×3 (14:20→16:40)
[2017-04-02] MEDS ORDERED: MetoCLOpramide 5 mg/mL 2 mL Inj IVPUSH PRN (14:20)
[2017-04-02] MEDS ORDERED: fentaNYL-PF 50 mCg/mL 2 mL Inj IVPUSH PRN (14:20)
[2017-04-02] MEDS ORDERED: HYDROmorphone 1 mg/mL Inj IVPUSH PRN (14:20)
[2017-04-02] MEDS ORDERED: EPHEDrine Sulfate 50 mg/mL Inj IVPUSH PRN (14:20)
[2017-04-02] MEDS ORDERED: Phenylephrine 10,000 mCg/mL Inj IVPUSH PRN (14:20)
[2017-04-02] MEDS ORDERED: Dexamethasone 4 mg/mL Inj IVPUSH PRN (14:20)
[2017-04-02] MEDS ORDERED: Labetalol 5 mg/mL 20 mL Inj IV PRN (14:20)
[2017-04-02] MEDS ORDERED: hydrALAZINE 20 mg/mL Inj IVPUSH PRN (14:20)
[2017-04-02] MEDS ORDERED: HYG25 PO (14:47)
[2017-04-02] MEDS ORDERED: HYDROcodone-APAP 5-325 mg Tablet PO PRN (14:55)
[2017-04-02] MEDS ORDERED: oxyCODONE-Acetamin 5-325 mg Tablet PO PRN (14:55)
--- NOTE | 2017-04-02 15:04 | DRSVH ---
PROCEDURE: X-RAY OPERATIVE CHOLANGIOGRAM ([id number]) INDICATIONS: CHOLIANGIOGRAM COMPARISON: [facility], , [facility]OMEN LTD, 04/02/2017, 11:42. FINDINGS: Biliary ducts: The surgeon injected contrast into the biliary ducts after cannulation of the cystic duct stump. Visualized intra- and extrahepatic bile ducts are normal in caliber, without strictures. No intraluminal filling defects to suggest retained ductal stones or sludge. No evidence for iatro genic ductal injury. Duodenum: Contrast flows promptly through the sphincter of Oddi into the duodenum, which appears nor mal in caliber. IMPRESSION: Unremarkable intraoperative cholangiogram. No choledocholithiasis is evident. Dictated by: Wilfred Merritt M.D. on 04/02/2017 at 14:02 Approved by: Wilfred Merritt M.D. on 04/02/2017 at 14:03
--- NOTE | 2017-04-02 15:34 | HP ---
[address] [address] HISTORY AND PHYSICAL PATIENT: GERALD MACK : 1945 MR#: [id number] ADMIT: 04/02/2017 JOB ID: [id number] IDENTIFICATION/CHIEF COMPLAINT: Dr. Cosme has asked me to see this 71-year-old man in the emergency department with symptomatic gallstones. HISTORY OF PRESENT ILLNESS: The patient has had one similar episode of pain that was fairly typical for symptomatic gallstone problems. He was seen here and workup included a thickened gallbladder wall, but no gallstones. He was discharged with plans for followup as an outpatient but now returns with the same pain as he had before. During his last hospitalization, he had mild elevation of his bilirubin that spontaneously resolved. Ultrasound today documents gallstones. PAST MEDICAL HISTORY: 1. Hypertension. 2. Known hiatal hernia with GERD. 3. Arthritis. 4. Hay fever. MEDICATIONS: Aspirin, hydrochlorothiazide, lansoprazole, losartan, p.r.n. Naprosyn. ALLERGIES: No drug allergies. SOCIAL HISTORY: Lives alone, has an adult son and daughter in [place] close to him. Negative tobacco. Negative daily alcohol. FAMILY HISTORY/REVIEW OF SYSTEMS: Negative. PHYSICAL EXAMINATION: Overweight male, in mild discomfort but no acute distress. He is afebrile. Vital signs are within normal limits. His sclerae are clear. Neck is supple. Lungs are clear. Heart sounds are regular. Abdomen is soft with minimal right upper quadrant tenderness. LABORATORY DATA: His white count is normal. His hematocrit is 43. Chemistries are normal. Glucose is 121. LFTs are within normal limits. Lipase is 53. IMAGING: Abdominal ultrasound shows multiple gallstones, thickened gallbladder wall. IMPRESSION AND PLAN: Symptomatic gallstones, possible acute cholecystitis. I have offered him a laparoscopic cholecystectomy with cholangiogram today and he would like to proceed after a full discussion of risks, benefits, and possible complications.
--- NOTE | 2017-04-02 16:00 | OP ---
[address] [address] OPERATIVE REPORT PATIENT: GERALD MACK : 1945 MR#: [id number] ADMIT: 04/02/2017 JOB ID: [id number] DATE OF SURGERY: 04/02/2017 PREOPERATIVE DIAGNOSIS(ES): Symptomatic gallstones. POSTOPERATIVE DIAGNOSIS(ES): Acute cholecystitis. PROCEDURE: Laparoscopic cholecystectomy with intraoperative cholangiogram. SURGEON: Erwin Garcia M.D. FORGING MACHINE HAND: Teja Brown PA-C INDICATIONS: A 71-year-old male with signs and symptoms consistent with symptomatic gallstones. FINDINGS: 1. administrative assistant front desk was medically necessary for the camera operation and traction. 2. The patient had mild acute cholecystitis. 3. The patient had normal intraoperative cholangiogram. DESCRIPTION OF PROCEDURE: The patient was brought to the operating room. SCOAP protocol was followed. General anesthetic was administered. Abdomen was prepped and draped in a sterile fashion. Surgical time-out was performed. We began with an optical trocar in the periumbilical region and insufflated the abdomen. Three additional ports were placed. Gallbladder thick walled with some adhesions of the greater omentum to it. We had to decompress the gallbladder after bluntly taking off the adhesions. The gallbladder was retracted cephalad and we dissected out the triangle of Calot, identifying the cystic duct as it entered the gallbladder. Cystic artery was divided with clips. We now made an incision in the cystic duct and we obtained a cholangiogram that showed a long tortuous cystic duct, normal hepatic ductal anatomy and normal common duct with flow into the duodenum. We removed our cholangiocatheter and placed two metal clips on the cystic duct. The Hem-O-Kirstin clip was not available so I elected to divide the cystic duct and then placed a PDS Endoloop underneath these two clips to make certain that I had circumferential closure on the duct. The gallbladder was then dissected out of liver bed without spillage of stones or bile. The gallbladder was removed in a bag to avoid wound contamination. We then irrigated out the area of dissection, checked for adequate hemostasis. There was no bile leak. We suctioned out all of our irrigation, removed our ports and closed the wounds with absorbable suture. The patient tolerated the procedure well.
[2017-04-02] MEDS ORDERED: diphenhydrAMINE 25 mg Capsule PO PRN (16:40)
--- NOTE | 2017-04-02 16:51 | PCM.ANEP1 ---
Post Anesthesia PACU Phase 1 Assessment Vital Signs Vital Signs Date Time Temp Pulse Resp B/P Pulse Ox O2 Delivery O2 Flow Rate FiO2 04/02/17 15:57 80 16 111/58 98 Room Air 04/02/17 15:49 80 16 111/58 98 Room Air 04/02/17 15:40 36.7 72 13 137/58 98 Room Air 04/02/17 15:30 85 17 113/91 96 Room Air 04/02/17 15:15 36.7 83 15 145/82 98 Simple Mask 8 04/02/17 15:10 80 20 151/58 97 Simple Mask 8 04/02/17 15:05 77 20 151/64 96 Simple Mask 8 04/02/17 15:00 36.6 78 19 110/53 96 Simple Mask 8 04/02/17 13:14 36.7 73 14 147/84 96 Room Air 04/02/17 13:13 73 14 147/84 96 Room Air 04/02/17 11:53 36.7 62 14 152/87 96 Room Air 04/02/17 09:16 36.6 68 15 133/64 97 Room Air Anesthetic Administered: GA Level of Alertness: Awake, talking SALGADO's with Equal Strength: Yes Pain: No Nausea or Vomiting: No CV Function & Hydration Stable: Yes Airway Device: Oxygen Delivery: Simple Mask Lungs: Clear to Auscultation Dermatome Level: Full Sensation PACU Phase 2 Assessment Complications: No Patient Instructions Provided: N/A Hugo Grajeda MD Apr 02, 2017 16:51
--- NOTE | 2017-04-02 17:05 | PROG NOTE ---
[address] [address] PROGRESS NOTE PATIENT: GERALD MACK : 1945 MR#: [id number] ADMIT: 04/02/2017 JOB ID: [id number] DATE: 04/02/2017 The patient came through the emergency department and underwent laparoscopic cholecystectomy with cholangiogram today. He had hoped to go home from day surgery and although he remains hemodynamically stable he is unsteady on his feet, still a bit nauseous, and requiring some IV medications. We will therefore admit him to the hospital overnight for observation with anticipated discharge tomorrow morning.
--- NOTE | 2017-04-02 17:40 | NUR ---
Postop Pt comes from PACU A&OX4 with tolerable pain /. Denies CP, SOB, Nausea. Vitals stable. 4 Lap sites SS, Telfa folded and Bioclusive placed over. Has not voided at this time. Daughter at bedside. IV Left AC. Care continues
[2017-04-02] MEDS: Ketorolac 15 mg/mL Inj IVPUSH PRN (18:31)
--- NOTE | 2017-04-02 19:39 | NUR ---
Case Management: GURPREET explained to patient at 1930, all questions answered. Signed original placed in chart, copy give to patient. Rosalia Patiño RN
[2017-04-03 00:10] VITALS: BP 130/77; PULSE 68; RESP 18; O2SAT 95
[2017-04-03] MEDS: Ketorolac 15 mg/mL Inj IVPUSH PRN (02:45)
[2017-04-03 04:30] VITALS: BP 136/73; PULSE 71; RESP 18; O2SAT 93
--- NOTE | 2017-04-03 07:43 | PCM.PNSURG ---
Subjective Date of Service: Apr 03, 2017 Date of Service: Apr 03, 2017 Visit Information: Reason for Visit Cholecystitis Surgery/Surgery Date Post-Op Day # 1 s/p laparoscopic cholecystectomy Date of Admission: Hospital Day # Subjective: Patient reports feeling great. Has expressed no problems with ambulation to BR. Voiding but no bm as of yet. Pain controlled chiefly w/ toradol as patient really doesnt use, or like, opioids. He reports living alone without need to ascend stairs, with daughter and son 1 block away. Retired. Denies f/c/cp/sob. Postop General: No Complaints Gastrointestinal: No N/V Pain Management: IV Push (ketorolac) Postop Activity: Ambulating Independently Objective Objective Well nourished elderly male, appearing younger than stated age. No apparent distress. Afebrile. Appropriately stable vital signs. Vital Sign- Last 8 Hours Date Time Temp Pulse Resp B/P Pulse Ox O2 Delivery O2 Flow Rate FiO2 04/03/17 04:30 36.7 71 18 136/73 93 Room Air 04/03/17 00:10 36.5 68 18 130/77 95 Room Air Intake and Output- Last 8 Hour 04/03/17 Cumulative From/Thru 07:00 04/02/17 06:11 - 04/03/17 06:10 Intake Total 300 ml 2550 ml Output Total 1000 ml 1400 ml Balance -700 ml 1150 ml Intake Oral 300 ml 700 ml IV Total 1850 ml Output Urine Total 1000 ml 1400 ml # Bowel Movements 0 0 General: Alert, Cooperative, No Acute Distress Lungs: Clear to Auscultation Heart: Regular Rate/Rhythm Abdomen: Soft, Appropriately tender SURGICAL WOUND : Wound General Appearence: Steri Strips, Wound under dressing Dressing & Drainage Status: Serosanguineous Drainage (minimal) Neuro: Normal Gait Result Diagram: 04/02/1761904/02/17 0620 Assessment & Plan Impression stable postoperative course s/p laparoscopic cholecystectomy. Nausea and unsteadiness improved. Pain controlled adequately on toradol although would prefer trial of tylenol/ibuprofen as patient is resistant to using hydrocodone. Problems: Plan Ibuprofen/tylenol trial Hold Toradol OOB and ambulate D/C when pain stabilized; hopefully next few hours. f/u PA clinic in 2-3 weeks. Pain Management: Ibuprofen/Tylenol Valeriano Brown PA-C Apr 03, 2017 07:43
--- NOTE | 2017-04-03 08:09 | PCM.DISURG ---
Surgical Discharge Instruction Date of Service Apr 03, 2017 Dates of Hospitalization Date of Hospital Admission Apr 02, 2017 Providers Admitting Physician: Primary Care Physician: Nancy Waldrop DO Attending Physician: Erwin Garcia MD Discharge Diagnosis Discharge Diagnosis Acute cholecystitis Post Operative diagnosis Same Diet Discharge Diet: No restrictions Activity Discharge Activity-General: Try not to overdue, Be up and about, Balance rest and activity, Activity as pain allows, Activity as energy allows Dressing and Incisional Care Dressing Care: Keep dressing clean, dry & intact, Allow Steri Stripes to fall off, Remove outer dressing after 24 hrs Hygiene: May shower after (24 hours. Remove outer dressings prior to showering. ), DO NOT soak incision under water, NO bathtub, hot tub or whirlpool Additional Instructions Discharge Instructions Purchase Docusate Sodium for help with constipation. Increase fluids and fiber. Please be aware of a tendency for short term problems with loose stools. If this becomes problematic, please inform the provider at your post-op visit. Additional Instructions You will be following up with a PA in post op general surgery clinic in 2-3 weeks. Follow Up Plan Mid-level Provider (F9): Shyanne Welch PAC Follow-up appointment: Weeks (2-3) Call your provider for: Fever, Chills, Shortness of breath, Increasing abdominal pain, Nausea, Vomiting, Wound redness, Increasing wound pain, Warmth to touch, Discharge @ incision, pus discharge Valeriano Brown PA-C Apr 03, 2017 08:09
--- NOTE | 2017-04-03 11:25 | NUR ---
DC Pt ambulating independently with steady gait. A&OX4, denies SOB, Nausea, CP. Pain tolerable with Tylenol and ibuprofen. All discharge instructions reviewed with pt and daughter at bedside. All belongings in hand. No further questions or concerns. Lap sites C/D/I with older minimal discharge SS. Pt ambulates out to car with daughter to go home. Care discontinues
--- NOTE | 2017-04-03 17:00 | PCM.DC.SUR ---
Discharge Summary Date of Service: Apr 03, 2017 Date of Hospital Admission: Apr 02, 2017 at 17:55 Date of Operation(s): Apr 02, 2017 Date of Discharge: Apr 03, 2017 Diagnosis at Time of Discharge Acute cholecystitis Problems: Operation Laparoscopic cholecystectomy Brief History and Physical: HISTORY OF PRESENT ILLNESS: The patient has had one similar episode of pain that was fairly typical for symptomatic gallstone problems. He was seen here and workup included a thickened gallbladder wall, but no gallstones. He was discharged with plans for followup as an outpatient but now returns with the same pain as he had before. During his last hospitalization, he had mild elevation of his bilirubin that spontaneously resolved. Ultrasound today documents gallstones. Physical Exam (at time of discharge): Gen: Well nourished pleasant male in no apparent distress. Afebrile. HEENT: normocephalic and atraumatic. PERRL, EOMI. Neck: supple Chest: Clear to auscultation. Cor: Regular rate and rhythm. Abd: Soft, appropriately tender. No guarding or distention. 4 abdominal surgical incisions under dressings with minimal serosanguinous discharge noted. No erythema or edema. Ext: no edema. Consultants: None. Hospital Course: The patient was seen and evaluated in the ED and for concerns of gallstones. He was then taken to the operating room for a planned laparoscopic cholecystectomy which was performed without complication. An interoperative cholangiogram was also performed which showed no evidence of obstruction of the common and cystic ducts. He was then eventually transferred to the PACU with an intention to attempt to discharge him to home from there but on account of some mild nausea, and unsteadiness of gait, it was decided to let him stay overnight. On postoperative day number 1, he had no nausea and was able to ambulate without difficulty. His pain was also controlled on acetaminophen and ibuprofen. He was able to tolerate a diet and displayed no fevers or chills. He was then discharged to his home. Pathology: pending. Disposition: Home in good condition. Follow-up Plan: follow up in 2-3 weeks with the general surgery PA in the Surgery clinic. Aspirin (Aspirin) 81 Mg Tablet 81 MG PO DAILY (Reported) Chlorthalidone (Chlorthalidone) 25 Mg Tablet 25 MG PO DAILY (Reported) Lansoprazole DR (Prevacid) 30 Mg Capsule 30 MG PO DAILY (Reported) Losartan Potassium (Losartan Potassium) 50 Mg Tablet 50 MG PO DAILY (Reported) Naproxen Sodium (Aleve) 220 Mg Capsule 220 MG PO PRN For Pain (Reported) copies to: Nancy Waldrop Samuel L PA-C Apr 03, 2017 17:00
--- NOTE | 2017-04-07 16:07 | PATH ---
SURGICAL PATHOLOGY Attending Physician:Erwin Garcia MD CASE STATUS: Signed Out PATIENT NAME: GERALD MACK PID: [id number] : 1945 DATE COLLECTED:04/02/2017 00:00 SPECIMEN: Gallbladder CLINICAL HISTORY: CHOLECYSTITIS 1). GALLBLADDER & CONTENTS FINAL DIAGNOSIS: 1.GALLBLADDER, CHOLECYSTECTOMY: CHRONIC ACTIVE CHOLECYSTITIS WITH CHOLELITHIASIS. No evidence of dysplasia or malignancy.ICD10 K81.2 GROSS DESCRIPTION: Labeled: Gallbladder and contents. Preoperative Diagnosis: Cholecystitis. Received in formalin, labeled with the patient's name and designated "gallbladder" is a 9.0 x 4.0 x 2.5 cm intact gallbladder. The serosa is evans, smooth, glistening and focally reddened. The gallbladder wall is somewhat thickened, fibrous and only slightly pliable, ranging from 0.2 to 0.6 cm in thickness. The lumen contains green viscous bile and a 2.5 x 2.5 x 0.4 cm aggregate of multiple yellow lobulated and friable calculi ranging from 0.2 x 0.2 x 0.1 cm to 0.7 x 0.5 x 0.5 cm. The mucosa is evans-dark red and flattened with focal hemorrhagic areas. The cystic duct margin is inked blue and public service representative sections are submitted in cassette A1. ([id number]) MICRO DESCRIPTION: See diagnosis. ICD-9 CODES: CPT CODES: 1: 39988 Electronically Signed Out Jayashree Moreno MD [facility] [address], [place] [address] Technical component performed at [facility], [facility] [address], [place], [address]
== END 2017-04-03 11:20 | disposition home or self-care (01) ==
LOC: SED 06:01 → SAS 13:07 → OSC 17:55
PROVIDERS: ADMIT Surgery; ATTEND Surgery
DX: K80.10 Calculus of gallbladder with chronic cholecystitis without obstruction (principal); K82.8 Other specified diseases of gallbladder; I10 Essential (primary) hypertension; K44.9 Diaphragmatic hernia without obstruction or gangrene; K21.9 Gastro-esophageal reflux disease without esophagitis; M19.90 Unspecified osteoarthritis, unspecified site; J30.1 Allergic rhinitis due to pollen; Z79.82 Long term (current) use of aspirin; Z79.899 Other long term (current) drug therapy; Z87.891 Personal history of nicotine dependence
CPT/HCPCS: 36415; 47563; 74300; 76705; 80053; 81000; 83605; 83690; 83735; 85025; 85610; 88304; 93005; 96361; 96374; 96375; 99285; G0378; J0360; J0690; J1100; J1885; J2405; J2704; J2710; J3010; J7030; J7120; Q9967